=== PATIENT | male | born 1995 | race Caucasian/White ===

== ENCOUNTER 2021-11-21 21:49 | Emergency (ER) | payer OTHER, BC ==
[~2021-11-21] VITALS: Ht 177.8 cm; Wt 109.1 kg
[2021-11-21 22:05] VITALS: TEMP 98.3
[2021-11-21 23:15] VITALS: BP 133/80; PULSE 75
== END 2021-11-21 23:15 | disposition home or self-care (01) ==
LOC: COL.ER 21:49
DX: R07.89 Other chest pain (principal); R10.13 Epigastric pain